=== PATIENT | male | born 1960 | race Caucasian/White ===

== ENCOUNTER → 2019-02-04 | Day surgery (SDC) | payer OTHER ==
[~2019-02-04] MED LIST: LIDOCAINE HCL 1% MPF 30 SOL ONE; PROPOFOL 500 MG/50 ML EMU IV ONE
[2019-02-04 09:38] VITALS: RESP 16
[2019-02-04 11:40] VITALS: TEMP 97.9
[2019-02-04 11:46] VITALS: BP 158/77; PULSE 52; O2SAT 99
== END | disposition home or self-care (01) | DRG 951 ==
LOC: SURG 08:36
PROVIDERS: ATTEND Surgery
DX: Z12.11 Encounter for screening for malignant neoplasm of colon (principal); Z86.010 Personal history of colon polyps; K62.1 Rectal polyp
CPT/HCPCS: 99001; J2001; J2704